=== PATIENT | female | born 1960 | race Caucasian/White ===

== ENCOUNTER 2018-03-27 08:32 | Day surgery (SDC) | payer BC ==
[~2018-03-27] VITALS: Ht 167.6 cm; Wt 72.2 kg
[2018-03-27] MEDS ORDERED: LOTRISONE 0.05%1 CRE TOP (08:47)
[2018-03-27] MEDS ORDERED: TUMS500 MG PO (09:03)
[2018-03-27 09:04] VITALS: BP 118/76; PULSE 83; TEMP 98.5
[2018-03-27 10:35] VITALS: BP 92/51; PULSE 80; TEMP 97.3
[2018-03-27 10:45] VITALS: BP 100/67; PULSE 85
[2018-03-27 11:00] VITALS: BP 97/55; PULSE 77
== END 2018-03-27 11:12 | disposition home or self-care (01) ==
LOC: SDCO 08:32
DX: Z12.11 Encounter for screening for malignant neoplasm of colon (principal); D12.2 Benign neoplasm of ascending colon; D12.5 Benign neoplasm of sigmoid colon; D12.8 Benign neoplasm of rectum; K64.0 First degree hemorrhoids
CPT/HCPCS: J2250; J3010; J7030

== ENCOUNTER → 2019-05-21 | Outpatient (CLI) | payer BC ==
[~2019-05-21] MED LIST: LOTRISONE 0.05%1 CRE TOP; TUMS500 MG PO
== END ==
LOC: MC.RAD 09:41
DX: Z12.31 Encounter for screening mammogram for malignant neoplasm of breast (principal)

== ENCOUNTER → 2022-02-25 | Outpatient (CLI) | payer OTHER | LOC: MC.RAD 09:22 | DX: Z12.31 Encounter for screening mammogram for malignant neoplasm of breast (principal); N64.89 Other specified disorders of breast ==

== ENCOUNTER → 2022-03-03 | Outpatient (CLI) | payer OTHER | LOC: MC.RAD 07:44 | DX: N64.89 Other specified disorders of breast (principal) ==